=== PATIENT | female | born 1990 | race American Indian/Alaskan Native ===

== ENCOUNTER 2019-03-24 09:34 | Day surgery (SDC) | payer OTHER ==
[2019-03-24] MEDS ORDERED: SILVER NITRATE APPLICATOR 1 EA TP ONE (09:52)
[2019-03-24] MEDS ORDERED: METHYLERGONOVINE MALEATE 0.2 MG/ML VIAL IM ONE (09:53)
[2019-03-24] MEDS ORDERED: LACTATED RINGERS 1,000 ML IV SCH (10:02)
--- NOTE | 2019-03-24 10:25 | Anesthesia Day of Surgery ---
Anesthesia Day of Surgery - Day of Surgery Patient Examined: Yes Patient H&P Reviewed: Yes Patient is NPO: Yes
--- NOTE | 2019-03-24 10:25 | Anesthesia Consultation ---
Anesthesia Consult and Med Hx Date of service: 03/24/19 - Airway Anesthetic Teeth Evaluation: Good ROM Head & Neck: Adequate Mental/Hyoid Distance: Adequate Mallampati Class: Class II Intubation Access Assessment: Good - Pulmonary Exam CTA: Yes - Cardiac Exam Cardiac Exam: RRR - Pre-Operative Health Status ASA Pre-Surgery Classification: ASA2 Proposed Anesthetic Plan: General (Obesity , asthma, GERD) - Pulmonary Hx Asthma: Yes (Last used inhaler approx 6 mos ago) - Central Nervous System Hx Psychiatric Problems: No - Other Systems Hx Cancer: No
[2019-03-24] MEDS ORDERED: ONDANSETRON 4 MG/2 ML INJ IV PRN (10:26)
[2019-03-24] MEDS ORDERED: HYDROmorphone 1 MG/1 ML INJ IV PRN (10:26)
[2019-03-24] MEDS ORDERED: MIDAZOLAM 2 MG/2 ML INJ IV NR (11:00)
--- NOTE | 2019-03-24 11:46 | Short Stay Summary ---
Short Stay Documentation Date of service: 03/24/19 Narrative H&P: 28y/o @ 7 weeks ega who presents with findings of a missed . The patient underwent a pelvic ultrasound that demonstrated a crown-rump length consistent with 6 weeks 1 day and no cardiac activity noted. The patient denies any active vaginal bleeding or pain. She has elected to undergo surgical management of her symptoms. - History Principal diagnosis: missed Past Medical History: No medical history Past Surgical History: tonsillectomy Social history: single - Allergies and Medications Current Medications: Allergies egg Allergy (Verified 03/22/19 17:39) Hives, swelling peanut Allergy (Verified 03/22/19 17:39) Hives, swelling shellfish derived Allergy (Verified 03/22/19 17:39) Hives, swelling Home Medications Medication Instructions Recorded Confirmed Last Taken Type ALBUTEROL Inhaler (OR & NICU) 2 puff IH QID PRN 03/22/19 03/22/19 Unknown History [Proair] Vit-Fe Fumar-FA [ 1 tab PO QDAY 03/22/19 03/22/19 Unknown History Vitamin] Active Medications Hydromorphone HCl (Dilaudid) 0.5 mg IV Q10MIN PRN PRN Reason: Pain , Severe (7-10) Stop: 03/24/19 23:59 Lactated Ringer's (Lactated Ringers) 1,000 mls @ 75 mls/hr IV DIRECT ANJEL Midazolam HCl (Versed) 2 mg IV PREOP NR Stop: 03/24/19 23:59 Ondansetron HCl (Zofran) 4 mg IV ONCE PRN PRN Reason: Nausea And Vomiting Stop: 03/24/19 23:59 - Physical exam General appearance: no acute distress Integumentary: no rash HEENT: Atraumatic Lungs: Clear to auscultation Breasts: deferred Heart: Regular rate Gastrointestinal: normal Female Genitourinary: deferred Rectal Exam: deferred Extremities: no ischemia Neurological: Normal gait - Brief post op/procedure progress note Date of procedure: 03/24/19 Pre-op diagnosis: missed Post-op diagnosis: same Procedure: Suction dilatation and curettage Anesthesia: GETA Surgeon: OC ALAS Estimated blood loss: 50-100ml Pathology: list (products of conception) Specimen disposition: to lab Condition: stable - Hospital course Hospital course: Patient was admitted the day of surgery underwent a suction D&C. Please see operative note for details of surgery. Postoperative course was uneventful. - Disposition Condition at discharge: Good Disposition: DC-[id number] TO HOME OR SELFCARE Short Stay Discharge Plan Activity: other (pelvic rest for 1 week) Diet: regular Additional Instructions: Follow-up with Dr. Alas in 2 weeks Prescriptions: Ibuprofen [Motrin] 800 mg PO Q8HR PRN #60 tablet PRN Reason: Pain, Mild (1-3) HYDROcodone/APAP 5-325 [[place] 5/325] 1 each PO Q6HR PRN #20 tablet PRN Reason: Pain
[2019-03-24 12:23] LABS: Hemoglobin 11.9 gm/dl (10.1-14.3); Mean Corpuscular HGB Conc 32 % (30-34); Mean Corpuscular Volume 84 fl (79-97); Platelet Count 326 K/mm3 (140-440); Red Blood Count 4.43 M/mm3 (3.65-5.03); Red Cell Distribution Width 14.2 % (13.2-15.2)
[2019-03-24] MEDS ORDERED: LIDOCAINE MPF (2%) 20 MG/1 ML VIAL 5 ML ONE (12:23)
[2019-03-24] MEDS ORDERED: PROPOFOL 200 MG/20 ML VIAL IV ONE (12:23)
[2019-03-24] MEDS ORDERED: MIDAZOLAM 2 MG/2 ML INJ ONE (12:23)
[2019-03-24] MEDS ORDERED: fentaNYL 100 MCG/2 ML INJ ONE (12:23)
[2019-03-24] MEDS ORDERED: ONDANSETRON 4 MG/2 ML INJ ONE (12:48)
[2019-03-24] MEDS ORDERED: dexAMETHasone 20 MG/5 ML VIAL ONE (12:48)
--- NOTE | 2019-03-24 13:09 | Operative Report ---
Operative Report Operative Report: Date of surgery: 03/24/2019 Preoperative diagnosis: Missed Postoperative diagnosis: Same as above Procedure: Suction dilatation and curettage Surgeon: Rhoda Ridley M.D. Anesthesia: Gen. endotracheal anesthesia Estimated blood loss: 100 mL Findings: Products of conception Indication: 28-year-old at 7 weeks estimated gestational age with findings of a missed . Procedure: The patient was taken to the operating room and given general endotracheal anesthesia without complication. The patient is prepped and draped in a normal sterile fashion. A bivalve speculum was placed in the patient's vagina and a single-tooth tenaculums placed on the anterior lip of the cervix. The uterine cavity was then sounded. The cervical os was then dilated with graduated dilators. A number [place] curved cannula was placed to suction and found to be adequate. The cannula was then gently inserted into the dilated cervical os. Evacuation of the uterine contents were performed. Sharp curettage and endometrial surface was performed until cry was achieved. The cannula was then gently reinserted into the uterine cavity to evacuate any additional contents. After removal of the cannula there was no evidence of any active bleeding. The vaginal instruments were then removed atraumatically. The patient was then successfully extubated and taken to the recovery room in stable condition. All sponge laps and needle counts were correct x2. Pathology consisted of products of conception.
[2019-03-24] MEDS ORDERED: KETOROLAC 30 MG/1 ML INJ ONE (13:10)
[2019-03-24 14:26] VITALS: BP 136/83
--- NOTE | 2019-03-24 15:09 | Post Anesthesia Evaluation ---
- Post Anesthesia Evaluation Patient Participated: Yes Airway Patent: Yes Stable Respiratory Function: Yes Nausea/Vomiting: No Temp > 96.8F: Yes Pain Manageable: Yes Adequeate Hydration: Yes Anesthesia Complications: No Block Receding Appropriately: Not Applicable Patient on Ventilator: No
== END 2019-03-24 15:05 | disposition home or self-care (01) ==
LOC: OR 09:34
PROVIDERS: ATTEND Obstetrics & Gynecology
DX: O02.1 Missed abortion (principal); G43.909 Migraine, unspecified, not intractable, without status migrainosus; J45.909 Unspecified asthma, uncomplicated; K21.9 Gastro-esophageal reflux disease without esophagitis; Z91.012 Allergy to eggs; Z91.010 Allergy to peanuts; Z91.013 Allergy to seafood; Z79.899 Other long term (current) drug therapy; Z98.890 Other specified postprocedural states
CPT/HCPCS: 36415; 59820; 85027; 86850; 86900; 86901; 88305; J1100; J1170; J1885; J2250; J2405; J2704; J3010; J7120; J2210